=== PATIENT | female | born 1965 | race Caucasian/White ===

== ENCOUNTER → 2019-08-02 | Outpatient (CLI) | payer BC ==
--- NOTE | 2019-08-02 18:50 | RAD ---
Examination: ELBOW BILAT 3V History: Bilateral elbow pain Comparison/Correlation: None Findings: 3 images of the right elbow and 3 views of the left elbow were obtained. Joint spaces are normal. No acute fracture or bone destruction. Soft tissues are unremarkable. Bony mineralization is adequate. No degenerative findings. No fat-pad displacement to suggest joint effusion. Impression: Normal bilateral elbow x-ray exam. Electronically signed by: Eusebio Mcghee MD (08/02/2019 6:47 PM) [id number]
== END | disposition home or self-care (01) ==
LOC: DXRAD 11:15
PROVIDERS: ATTEND Family Medicine
DX: M25.521 Pain in right elbow (principal); M25.522 Pain in left elbow
CPT/HCPCS: 73080